=== PATIENT | female | born 1960 | race Caucasian/White ===

== ENCOUNTER 2017-02-27 21:11 | Emergency (ER) | payer BC ==
[2017-02-27 21:22] VITALS: BP 135/88; PULSE 71; TEMP 99; BMI 24.2
[2017-02-27] MEDS ORDERED: FLUORESCEIN NA 1 EA STRIP ONE (21:38)
[2017-02-27] MEDS ORDERED: TETRACAINE 0.5% OPHTH SOLN 2 ML BOTTLE ONE (21:39)
[2017-02-27] MEDS ORDERED: TOBRAMYCIN 0.3% OPHTH SOLN 5 ML BOTTLE ONE (21:48)
--- NOTE | 2017-02-27 21:51 | PDOC ---
History of Present Illness - General History Source: Patient Exam Limitations: No Limitations - History of Present Illness Initial Comments: 02/27/17 21:51 The patient is a 56 year old female, accompanied by , with a significant past medical history of eye astigmatisms who presents to the emergency department with left eye pain since this morning and left eye blurred vision for one hour. The patient states that this morning she went to get her hair colored approximately 3 minutes after having the color washed out of her hair she began to feel a burning sensation similar to the feeling of getting sunscreen in your eye. She notes smelling ammonia while having the dye washed out of her hair. The patient states that there was a small eye floater that has progressively moved throughout the day. She states that she bought normal saline at [facility] and rinsed out her eye with no alleviation of symptoms. One hour ago the patient began having blurred vision which worsened before deciding to present to the Emergency Department. The patient denies any physical sensation of a foreign body entering her eye at any point. The patient denies any other complaints at this time. <Constantin Cash - Last Filed: 02/27/17 21:51> <Jessica Jin - Last Filed: 02/28/17 02:18> - General Chief Complaint: Eye Problem Stated Complaint: EYE BURNING Time Seen by Provider: 02/27/17 21:15 Past History <Constantin Cash - Last Filed: 02/27/17 21:51> - Past Medical History Other medical history: PSORIATIC ARTHRITIS - Psycho/Social/Smoking Cessation Hx Anxiety: No Suicidal Ideation: No Smoking History: Former smoker Have you smoked in the past 12 months: No Information on smoking cessation initiated: No 'Breaking Loose' booklet given: 02/27/17 <Jessica Jin - Last Filed: 02/28/17 02:18> - Past Medical History Allergies/Adverse Reactions: Allergies Allergy/AdvReac Type Severity Reaction Status Date / Time No Known Allergies Allergy Unverified 02/27/17 21:16 Review of Systems - Review of Systems Able to Perform ROS?: Yes Comments:: 02/27/17 21:51 CONSTITUTIONAL: Absent: fever, no chills, no fatigue EYES: Present: Left eye pain, burning, and blurred vision ENT: Absent: ear pain, no sore throat CARDIOVASCULAR: Absent: chest pain, no palpitations RESPIRATORY: Absent: cough, no SOB GI: Absent: abdominal pain, no nausea, no vomiting, no constipation, no diarrhea GENITOURINARY: Absent: dysuria, no frequency, no hematuria MUSCULOSKELETAL: Absent: back pain, no arthralgia, no myalgia SKIN: Absent: rash NEURO: Absent: headache <Constantin Cash - Last Filed: 02/27/17 21:51> *Physical Exam - Vital Signs Last Vital Signs Temp Pulse Resp BP Pulse Ox 99 F 71 16 135/88 99 02/27/17 21:16 02/27/17 21:16 02/27/17 21:16 02/27/17 21:16 02/27/17 21:16 - Physical Exam Comments: 02/27/17 21:51 GENERAL: The patient is awake, alert, and fully oriented, in no acute distress. HEAD: Normal with no signs of trauma. EYES: (+) Moderate erythema of the medial and lateral aspects of the conjunctiva of the left eye. Right eye visual acuity found to be 20/25. Left eye visual acuity found to be 20/50 ENT: Ears normal, nares patent, oropharynx clear without exudates. Moist mucous membranes. NECK: Normal range of motion, supple without lymphadenopathy, JVD, or masses. LUNGS: Breath sounds equal, clear to auscultation bilaterally. No wheeze/ crackles. HEART: Regular rate and rhythm, normal S1 and S2 without murmur or rub. ABDOMEN: Soft/nontender/nondistended. BS wnl. No guarding or rebound. No palpable masses. No hepatosplenomegaly. EXTREMITIES: Normal range of motion, no edema. No clubbing or cyanosis. No cords, erythema, or tenderness. NEUROLOGICAL: Cranial nerves II through XII grossly intact. Normal speech, normal gait. PSYCH: Normal mood, normal affect. SKIN: Warm, Dry, normal turgor, no rashes or lesions noted. <Constantin Cash - Last Filed: 02/27/17 21:51> - Vital Signs Last Vital Signs Temp Pulse Resp BP Pulse Ox 99 F 71 16 135/88 99 02/27/17 21:16 02/27/17 21:16 02/27/17 21:16 02/27/17 21:16 02/27/17 21:16 <Jessica Jin - Last Filed: 02/28/17 02:18> Medical Decision Making - Medical Decision Making Documentation has been prepared under my direction and personally reviewed by me in its entirety. I attest that this documented accurately reflects all work, treatment, procedures and medical decision making performed by me. As noted above, this 56-year-old presents with left eye discomfort/erythema after she visited [employer] earlier today (patient had hair colored and smelled "ammonia" as residual was being cleaned from her face). No other clear history of foreign body or toxin exposure. Patient states that she purchased 2 bottles of saline eye irrigation fluid from [employer] and used an entire bottle. The patient presented to the emergency room because she began to have blurry vision in the left eye an hour prior to presentation. There is been no previous history of corneal abrasion or other eye issues involving either eye. Exam reveals decreased visual acuity on the left side. Exam of the left eye shows inflammation of the conjunctiva as described above but no other acute abnormality. 2 drops of tetracaine local anesthetic placed in the left eye followed by fluorescein staining: No evidence of discrete corneal abrasion/ulcer or other abnormality seen. Although note discrete injury to the cornea as demonstrated, because of patient' s decreased visual acuity, will treat with tobramycin ophthalmic suspension. One drop placed in the left eye and patient will continue this every 4 hours. Meanwhile, she should follow-up with rippler tomorrow. Dr. Tee/ [facility] is onion topper for emergencies and referral information given to the patient. She was also given Dr. Reese/' contact information in case she cannot be seen by the on-call group. Patient can return to the emergency room if symptoms worsen. <Jessica Jin - Last Filed: 02/28/17 02:18> *DC/Admit/Observation/Transfer - Attestations Scribe Attestion: 02/27/17 21:52 Documentation prepared by Constantin Cash, acting as claim review medical director for Jessica Jin MD. <Constantin Cash - Last Filed: 02/27/17 21:51> <Jessica Jin - Last Filed: 02/28/17 02:18> Diagnosis at time of Disposition: Corneal inflammation, left - Discharge Dispostion Disposition: HOME Condition at time of disposition: Stable - Referrals Referrals: STAFF,NOT ON [Primary Care Provider] - Jaspal Tee MD [Staff Physician] - Call tomorrow - Patient Instructions Printed Discharge Instructions: DI for Chemical Eye Burn Additional Instructions: Elevate head tonight; cool compresses to eye as needed Tobramycin ophthalmic drops: 1-2 drops 4 times a day Can use ibuprofen/naproxen/acetaminophen as needed for pain Follow-up with ophthalmology tomorrow as discussedcall in the morning Return to ER if symptoms become severe
== END 2017-02-27 22:03 | disposition home or self-care (01) ==
LOC: FER 21:11
DX: H16.9 Unspecified keratitis (principal); L40.50 Arthropathic psoriasis, unspecified; Z87.891 Personal history of nicotine dependence
CPT/HCPCS: 99281-25

== ENCOUNTER 2017-02-28 10:48 | Emergency (ER) | payer BC ==
[2017-02-28 10:55] VITALS: BMI 24.2
[2017-02-28 10:59] VITALS: BP 122/83; PULSE 65; TEMP 98.8
[2017-02-28] MEDS ORDERED: traMADol HCL 50 MG TABLET PO ONE ×2 (11:25→12:24)
--- NOTE | 2017-02-28 11:25 | PDOC ---
History of Present Illness - General Chief Complaint: Eye Problem Stated Complaint: EYE PAIN Time Seen by Provider: 02/28/17 11:11 History Source: Patient Exam Limitations: No Limitations - History of Present Illness Initial Comments: 56 yo F presents with eye pain. She states that she was seen here yesterday for pain to the L eye after hair dye splashed into her eye. She was evaluated in the ED, had a negative fluorescein stain, and was discharged home with antibiotic drops. She states that she continues to have pain, so she took a tramadol that she had from a procedure 2 years ago, but it did not really help. She states that more than her eye, she has pain in her eyelid. The pain is worse with moving her eye. She has been washing her eye with water intermittently since the injury. She has appointment with ophthalmology at 1: 30pm today. She also states that her vision has been improving since yesterday. Past History - Past Medical History Allergies/Adverse Reactions: Allergies Allergy/AdvReac Type Severity Reaction Status Date / Time No Known Allergies Allergy Unverified 02/27/17 21:16 Home Medications: Ambulatory Orders Tramadol HCl 1 - 2 tab PO Q6H PRN #24 tablet MDD 8 tabs 02/28/17 Other medical history: PSORIATIC ARHTRITIS - Psycho/Social/Smoking Cessation Hx Anxiety: No Suicidal Ideation: No Smoking History: Former smoker Have you smoked in the past 12 months: No If you are a former smoker, when did you quit?: 2001 Information on smoking cessation initiated: No 'Breaking Loose' booklet given: 02/27/17 Hx Alcohol Use: No Drug/Substance Use Hx: No Substance Use Type: None Review of Systems - Review of Systems Able to Perform ROS?: Yes Comments:: GENERAL/CONSTITUTIONAL: No fever or chills. No weakness. HEAD, EYES, EARS, NOSE AND THROAT: L eye burning pain. No ear pain or discharge. No sore throat. SKIN: No rash NEUROLOGIC: No headache, vertigo, loss of consciousness, or change in strength/ sensation. *Physical Exam - Vital Signs Last Vital Signs Temp Pulse Resp BP Pulse Ox 98.8 F 65 18 122/83 97 02/28/17 10:51 02/28/17 10:51 02/28/17 10:51 02/28/17 10:51 06/23/17 10:51 - Physical Exam Comments: GENERAL: Awake, alert, and fully oriented, in no acute distress HEAD: No signs of trauma EYES: L eye with injected conjunctiva. No visualized FB. Fluorescein stain negative for abnormal uptake. Lateral portion of upper eyelid (mucosal surface) erythematous. PERRLA, EOMI. R sclera anicteric, conjunctiva clear NEUROLOGICAL: Cranial nerves II through XII grossly intact. Normal speech. SKIN: Warm, Dry, normal turgor, no rashes or lesions noted. Medical Decision Making - Medical Decision Making Patient was given tramadol in the ED with some improvement in pain (she was taking tramadol at home). Stable for DC to her ophtho appt. *DC/Admit/Observation/Transfer Diagnosis at time of Disposition: Corneal inflammation, left - Discharge Dispostion Disposition: HOME Condition at time of disposition: Stable Admit: No - Prescriptions Prescriptions: Tramadol HCl 1 - 2 tab PO Q6H PRN #24 tablet MDD 8 tabs PRN Reason: Severe Pain - Patient Instructions Printed Discharge Instructions: DI for Chemical Eye Burn
[2017-02-28] MEDS ORDERED: traMADol HCL 50 MG TABLET ONE ×2 (11:28→12:34)
[2017-02-28] MEDS ORDERED: FLUORESCEIN NA 1 EA STRIP ONE (11:30)
[2017-02-28] MEDS ORDERED: TETRACAINE 0.5% OPHTH SOLN 2 ML BOTTLE ONE (12:15)
== END 2017-02-28 12:38 | disposition home or self-care (01) ==
LOC: FER 10:48
DX: H16.9 Unspecified keratitis (principal); Z87.891 Personal history of nicotine dependence
CPT/HCPCS: 99282-25